=== PATIENT | female | born 1970 ===

== ENCOUNTER → 2020-01-19 | Outpatient (CLI) | payer OTHER ==
[2020-01-20 16:07] LABS: HPV 16 Negative (Negative); HPV 18 Negative (Negative); HPV OTHER HR TYPES Negative (Negative)
== END | disposition home or self-care (01) ==
LOC: LAB 11:40 → LAB SHORT 11:40
PROVIDERS: Obstetrics & Gynecology
DX: Z12.4 Encounter for screening for malignant neoplasm of cervix (principal)
CPT/HCPCS: 87624; G0123

== ENCOUNTER 2020-08-22 09:29 | Day surgery (SDC) | payer OTHER ==
[~2020-08-22] VITALS: Ht 172.7 cm; Wt 76.0 kg
[~2020-08-22 09:29] MED LIST: ALBU90OI INH; LISI5 PO; PROG100 PO; SERT25 PO
--- NOTE | 2020-08-22 10:03 | NUR ---
08/22/20 1003 BETTY MCCAULEY ONE ATTEMPT BY PRESTON IN RH MISSED SECOND SUCCESSFUL BY PRESTON IN RW PT TOW
--- NOTE | 2020-08-22 10:36 | NUR ---
08/22/20 [id number] Alisson Neumann SIMETHICONE USED DURING PROCEDURE.
== END 2020-08-22 11:17 | disposition home or self-care (01) ==
LOC: ORSCSDS 09:29
PROVIDERS: Internal Medicine Gastroenterology
PROC: 0DBH8ZX Excision of Cecum, Via Natural or Artificial Opening Endoscopic, Diagnostic (ICD-10-PCS; principal; 2020-08-22 10:45)
DX: Z12.11 Encounter for screening for malignant neoplasm of colon (principal); D12.0 Benign neoplasm of cecum
CPT/HCPCS: 88305; J2704; J7120

== ENCOUNTER 2020-09-10 23:53 | Emergency (ER) | payer OTHER | END 2020-09-11 04:53 | disposition left against medical advice (07) | LOC: ER 23:53 | DX: Z53.21 Procedure and treatment not carried out due to patient leaving prior to being seen by health care provider (principal) ==